=== PATIENT | male | born 2000 | race Caucasian/White ===

== ENCOUNTER 2018-04-25 20:54 | Emergency (ER) | payer OTHER ==
[~2018-04-25] VITALS: Ht 193 cm; Wt 142.9 kg
[~2018-04-25 20:54] MED LIST: AMOX50SU PO; ESOM20 PO
[2018-04-25] MEDS ORDERED: Percocet 5-3251 EACH PO (23:41)
== END 2018-04-26 00:17 | disposition home or self-care (01) ==
LOC: ER 20:54
DX: S16.1XXA Strain of muscle, fascia and tendon at neck level, initial encounter (principal); S00.81XA Abrasion of other part of head, initial encounter; V47.5XXA Car driver injured in collision with fixed or stationary object in traffic accident, initial encounter; Z79.899 Other long term (current) drug therapy; I10 Essential (primary) hypertension; E11.9 Type 2 diabetes mellitus without complications
CPT/HCPCS: 70450; 72125; 99284-25; A9270-GY

== ENCOUNTER 2018-08-03 01:37 | Emergency (ER) | payer OTHER ==
[~2018-08-03 01:37] MED LIST changes: +Percocet 5-3251 EACH PO
[2018-08-03] MEDS ORDERED: Voltaren100 GM TOP (04:00)
[2018-08-03] MEDS ORDERED: CYCL10 PO (04:00)
== END 2018-08-03 04:12 | disposition home or self-care (01) ==
LOC: ER 01:37
DX: M54.41 Lumbago with sciatica, right side (principal); I10 Essential (primary) hypertension; E11.9 Type 2 diabetes mellitus without complications
CPT/HCPCS: 96374; 99283-25; J1885

== ENCOUNTER 2020-09-11 09:20 | Emergency (ER) | payer OTHER ==
[~2020-09-11] VITALS: Ht 193 cm; Wt 145.2 kg
[~2020-09-11 09:20] MED LIST changes: +CYCL10 PO; +Voltaren100 GM TOP
[2020-09-11 09:43] LABS: BASOPHILS ABSOLUTE AUTO 0.03 K/mm3 (0.00-0.23); BASOPHILS PERCENT AUTO 0 % (0-2); EOSINOPHILS PERCENT AUTO 1 % (0-6); Hematocrit 48.5 % (37.0-53.0); Hemoglobin 16.9 g/dL (13.5-17.5); IMMATURE GRAN ABSOLUTE AUTO 0.06 K/mm3 (0.00-0.10); IMMATURE GRAN PERCENT AUTO 1 % (0-1); LYMPHOCYTES ABSOLUTE AUTO 1.86 K/mm3 (0.84-5.20); LYMPHOCYTES PERCENT AUTO 23 % (21-46); MONOCYTES ABSOLUTE AUTO 0.72 K/mm3 (0.16-1.47); MONOCYTES PERCENT AUTO 9 % (4-13); Mean Corpuscular HGB 30.1 pg (26.0-34.0); Mean Corpuscular HGB Conc 34.8 g/dL (31.5-36.5); Mean Corpuscular Volume 86 fL (80-100); Mean Platelet Volume 10.9 fL (9.1-12.4); NEUTROPHILS ABSOLUTE AUTO 5.46 K/mm3 (1.96-9.15); NEUTROPHILS PERCENT AUTO 66 % (41-73); Platelet Count 222 K/mm3 (150-400); RDW Coefficient Variation 13.1 % (11.7-14.2); RDW Standard Deviation 40.3 fL (35.1-46.3); Red Blood Cell Count 5.62 M/mm3 (4.30-5.90); White Blood Cell Count 8.23 K/mm3 (4.00-11.30)
[2020-09-11 10:15] LABS: Alanine Aminotransfer (ALT/SGP 60 U/L (12-78); Albumin, Blood 3.6 g/dL (3.4-5.0); Albumin/Globulin Ratio 0.8 (0.8-1.8); Alk Phos 82 U/L (50-136); Anion Gap 9 mmol/L (6-16); Aspartate Aminotrans (AST/SGOT 33 U/L (12-37); Bilirubin, Total 0.4 mg/dL (0.1-1.0); Blood Urea Nitrogen 13 mg/dL (8-24); Bun/Creatinine Ratio 25.3 (12.0-20.0); CO2, Blood 23 mmol/L (21-32); Calcium, Blood 9.1 mg/dL (8.5-10.1); Chloride, Blood 103 mmol/L (98-108); Creatinine, Blood 0.51 mg/dL (0.60-1.20); Globulin, Blood 4.6 g/dL (2.2-4.0); Glomerular Filtration Rate >60 (60-); Glucose, Blood 312 mg/dL (70-99); Potassium, Blood 4.3 mmol/L (3.5-5.5); Sodium, Blood 135 mmol/L (136-145); Total Protein, Blood 8.2 g/dL (6.4-8.2); Troponin I <0.015 ng/mL (0.000-0.040)
== END 2020-09-11 12:43 | disposition home or self-care (01) ==
LOC: ER 09:20
PROVIDERS: Emergency Medicine
DX: R07.89 Other chest pain (principal); E11.9 Type 2 diabetes mellitus without complications; I10 Essential (primary) hypertension
CPT/HCPCS: 36415; 71045; 80053; 83690; 84484; 85025; 85379; 93005; 93010; 99285-25

== ENCOUNTER → 2021-12-24 | Outpatient (CLI) | payer OTHER ==
[2021-12-24 16:56] LABS: BASOPHILS ABSOLUTE AUTO 0.02 K/mm3 (0.00-0.23); BASOPHILS PERCENT AUTO 1 % (0-2); EOSINOPHILS ABSOLUTE AUTO 0.03 K/mm3 (0.00-0.68); EOSINOPHILS PERCENT AUTO 1 % (0-6); Hemoglobin 17.2 g/dL (13.5-17.5); IMMATURE GRAN ABSOLUTE AUTO 0.03 K/mm3 (0.00-0.10); IMMATURE GRAN PERCENT AUTO 1 % (0-1); LYMPHOCYTES ABSOLUTE AUTO 0.54 K/mm3 (0.84-5.20); LYMPHOCYTES PERCENT AUTO 13 % (21-46); MONOCYTES ABSOLUTE AUTO 0.69 K/mm3 (0.16-1.47); MONOCYTES PERCENT AUTO 17 % (4-13); Mean Corpuscular HGB 29.7 pg (26.0-34.0); Mean Corpuscular HGB Conc 34.4 g/dL (31.5-36.5); Mean Corpuscular Volume 86 fL (80-100); Mean Platelet Volume 10.8 fL (9.1-12.4); NEUTROPHILS ABSOLUTE AUTO 2.81 K/mm3 (1.96-9.15); NEUTROPHILS PERCENT AUTO 68 % (41-73); Platelet Count 198 K/mm3 (150-400); RDW Coefficient Variation 13.2 % (11.7-14.2); RDW Standard Deviation 41.7 fL (35.1-46.3); Red Blood Cell Count 5.79 M/mm3 (4.30-5.90); White Blood Cell Count 4.12 K/mm3 (4.00-11.30)
[2021-12-24 17:22] LABS: Albumin, Blood 3.7 g/dL (3.4-5.0); Albumin/Globulin Ratio 0.8 (0.8-1.8); Bilirubin, Total 0.4 mg/dL (0.1-1.0); Bun/Creatinine Ratio 17.3 (12.0-20.0); Calcium, Blood 8.8 mg/dL (8.5-10.1); Creatinine, Blood 0.75 mg/dL (0.60-1.20); Globulin, Blood 4.5 g/dL (2.2-4.0); Potassium, Blood 3.9 mmol/L (3.5-5.5); Thyroid Stimulating Hormone 1.094 uIU/mL (0.360-4.800); Total Protein, Blood 8.2 g/dL (6.4-8.2)
[2021-12-27 00:07] LABS: HBSAG SCREEN Negative (Negative); HCV AB <0.1 (0.0-0.9); HEP A AB, IGM Negative (Negative); HEP B CORE AB, TOT Negative (Negative)
== END | disposition home or self-care (01) ==
LOC: LAB SHORT 16:52 → LAB 16:52
PROVIDERS: Physician Assistant
DX: E10.9 Type 1 diabetes mellitus without complications (principal); I10 Essential (primary) hypertension; R07.9 Chest pain, unspecified; R53.83 Other fatigue; R74.01 Elevation of levels of liver transaminase levels
CPT/HCPCS: 80053; 83036; 84443; 84484; 85025

== ENCOUNTER 2022-06-25 08:41 | Emergency (ER) | payer OTHER ==
[~2022-06-25] VITALS: Ht 193 cm; Wt 135.2 kg
[2022-06-25 09:00] VITALS: BP 187/105
[2022-06-25] MEDS ORDERED: Robaxin750 MG PO (11:10)
[2022-06-25] MEDS ORDERED: GABA300 PO (11:10)
== END 2022-06-25 11:17 | disposition home or self-care (01) ==
LOC: ER 08:41
DX: M54.41 Lumbago with sciatica, right side (principal); I10 Essential (primary) hypertension; E11.9 Type 2 diabetes mellitus without complications
CPT/HCPCS: A9270; J1885

== ENCOUNTER 2022-06-28 05:41 | Emergency (ER) | payer OTHER ==
[~2022-06-28] VITALS: Ht 185.4 cm; Wt 108.9 kg
[~2022-06-28 05:41] MED LIST changes: +GABA300 PO; +Robaxin750 MG PO
[2022-06-28 08:00] LABS: BASOPHILS ABSOLUTE AUTO 0.04 K/mm3 (0.00-0.23); BASOPHILS PERCENT AUTO 1 % (0-2); EOSINOPHILS PERCENT AUTO 1 % (0-6); Hematocrit 45.5 % (37.0-53.0); Hemoglobin 15.9 g/dL (13.5-17.5); IMMATURE GRAN ABSOLUTE AUTO 0.03 K/mm3 (0.00-0.10); IMMATURE GRAN PERCENT AUTO 0 % (0-1); LYMPHOCYTES ABSOLUTE AUTO 1.54 K/mm3 (0.84-5.20); LYMPHOCYTES PERCENT AUTO 20 % (21-46); MONOCYTES ABSOLUTE AUTO 0.68 K/mm3 (0.16-1.47); MONOCYTES PERCENT AUTO 9 % (4-13); Mean Corpuscular HGB Conc 34.9 g/dL (31.5-36.5); Mean Corpuscular Volume 86 fL (80-100); Mean Platelet Volume 11.2 fL (9.1-12.4); NEUTROPHILS ABSOLUTE AUTO 5.49 K/mm3 (1.96-9.15); NEUTROPHILS PERCENT AUTO 70 % (41-73); Platelet Count 185 K/mm3 (150-400); RDW Coefficient Variation 12.4 % (11.7-14.2); RDW Standard Deviation 38.5 fL (35.1-46.3); White Blood Cell Count 7.88 K/mm3 (4.00-11.30)
[2022-06-28 08:24] LABS: Albumin, Blood 3.3 g/dL (3.4-5.0); Albumin/Globulin Ratio 0.9 (0.8-1.8); Bilirubin, Total 0.4 mg/dL (0.1-1.0); Bun/Creatinine Ratio 26.8 (12.0-20.0); Calcium, Blood 8.8 mg/dL (8.5-10.1); Creatinine, Blood 0.52 mg/dL (0.60-1.20); Globulin, Blood 3.8 g/dL (2.2-4.0); Potassium, Blood 3.9 mmol/L (3.5-5.5); Total Protein, Blood 7.1 g/dL (6.4-8.2)
[2022-06-28 17:30] VITALS: BP 165/87
== END 2022-06-28 18:57 | disposition short-term general hospital (02) ==
LOC: ER 05:41
PROVIDERS: Emergency Medicine
DX: M48.061 Spinal stenosis, lumbar region without neurogenic claudication (principal); M54.16 Radiculopathy, lumbar region; E11.9 Type 2 diabetes mellitus without complications; I10 Essential (primary) hypertension
CPT/HCPCS: 72131; 80053; 82947; 85025; 96361; 96374; 96375; 96376; 99285-25; A9270; J1170; J1815; J1885; J2405; J7030

== ENCOUNTER 2023-09-13 17:55 | Emergency (ER) | payer OTHER ==
[~2023-09-13] VITALS: Ht 193 cm; Wt 140.6 kg
[2023-09-13 17:58] VITALS: BP 192/113
[2023-09-13] MEDS ORDERED: PredniSONE 20 MG Tab PO ONE (18:30)
[2023-09-13] MEDS ORDERED: PRED20 PO (18:31)
== END 2023-09-13 18:54 | disposition home or self-care (01) ==
LOC: ER 17:55
DX: B86 Scabies (principal); I10 Essential (primary) hypertension; E11.9 Type 2 diabetes mellitus without complications; G47.30 Sleep apnea, unspecified
CPT/HCPCS: A9270; J7512

== ENCOUNTER 2024-02-13 14:25 | Emergency (ER) | payer OTHER ==
[~2024-02-13] VITALS: Ht 193 cm; Wt 121.6 kg
[~2024-02-13 14:25] MED LIST changes: +PRED20 PO
[2024-02-13 14:42] VITALS: BP 219/129
[2024-02-13] MEDS ORDERED: Ketorolac Tromethamine 30mg Vial IM ONE (16:25)
[2024-02-13] MEDS ORDERED: OxyCODONE 7.5 mg/Acetam 325 mg TABLET PO ONE (16:25)
[2024-02-13] MEDS ORDERED: IBUP600 PO (17:06)
== END 2024-02-13 17:12 | disposition home or self-care (01) ==
LOC: ER 14:25
DX: M54.50 Low back pain, unspecified (principal); G89.29 Other chronic pain; I10 Essential (primary) hypertension; E11.9 Type 2 diabetes mellitus without complications; Z79.899 Other long term (current) drug therapy
CPT/HCPCS: 82947; 96372; 99283-25; A9270; J1885

== ENCOUNTER 2024-05-14 08:55 | Emergency (ER) | payer OTHER ==
[~2024-05-14] VITALS: Ht 172.7 cm; Wt 127.0 kg
[~2024-05-14 08:55] MED LIST changes: +IBUP600 PO
[2024-05-14] MEDS ORDERED: Ketorolac Tromethamine 30mg Vial IM ONE (09:30)
[2024-05-14] MEDS ORDERED: Gabapentin 300 MG Cap PO ONE (09:30)
[2024-05-14] MEDS ORDERED: Methyl Salicylate/Menth/Camph 57 GM TUBE TOP ONE (09:30)
[2024-05-14] MEDS ORDERED: Morphine Sulfate IR 15 MG Tab PO ONE (09:30)
[2024-05-14] MEDS ORDERED: Cyclobenzaprine HCl 10 MG Tab PO ONE (09:30)
[2024-05-14] MEDS ORDERED: Morphine Sulfat15 MG PO (10:43)
== END 2024-05-14 10:51 | disposition home or self-care (01) ==
LOC: ER 08:55
DX: M62.830 Muscle spasm of back (principal); I10 Essential (primary) hypertension; E11.9 Type 2 diabetes mellitus without complications; G47.30 Sleep apnea, unspecified; Z79.52 Long term (current) use of systemic steroids; Z87.39 Personal history of other diseases of the musculoskeletal system and connective tissue
CPT/HCPCS: 96372; 99283-25; A9270; J1885

== ENCOUNTER → 2024-06-17 | Outpatient (CLI) | payer OTHER ==
[~2024-06-17] MED LIST changes: +Morphine Sulfat15 MG PO
[2024-06-17 17:24] LABS: BASOPHILS ABSOLUTE AUTO 0.02 K/mm3 (0.00-0.23); BASOPHILS PERCENT AUTO 1 % (0-2); EOSINOPHILS ABSOLUTE AUTO 0.03 K/mm3 (0.00-0.68); EOSINOPHILS PERCENT AUTO 1 % (0-6); Hematocrit 51.7 % (37.0-53.0); Hemoglobin 17.3 g/dL (13.5-17.5); IMMATURE GRAN ABSOLUTE AUTO 0.03 K/mm3 (0.00-0.10); IMMATURE GRAN PERCENT AUTO 1 % (0-1); LYMPHOCYTES ABSOLUTE AUTO 0.88 K/mm3 (0.84-5.20); LYMPHOCYTES PERCENT AUTO 22 % (21-46); MONOCYTES ABSOLUTE AUTO 0.82 K/mm3 (0.16-1.47); MONOCYTES PERCENT AUTO 21 % (4-13); Mean Corpuscular HGB 29.3 pg (26.0-34.0); Mean Corpuscular HGB Conc 33.5 g/dL (31.5-36.5); Mean Corpuscular Volume 88 fL (80-100); Mean Platelet Volume 11.2 fL (9.1-12.4); NEUTROPHILS PERCENT AUTO 55 % (41-73); Platelet Count 170 K/mm3 (150-400); RDW Standard Deviation 41.8 fL (35.1-46.3); White Blood Cell Count 3.98 K/mm3 (4.00-11.30)
[2024-06-17 17:33] LABS: Albumin, Blood 3.8 g/dL (3.4-5.0); Albumin/Globulin Ratio 0.8 (0.8-1.8); Bilirubin, Total 0.5 mg/dL (0.1-1.0); Bun/Creatinine Ratio 15.7 (12.0-20.0); Calcium, Blood 9.4 mg/dL (8.5-10.1); Creatinine, Blood 0.83 mg/dL (0.60-1.20); Globulin, Blood 4.8 g/dL (2.2-4.0); Potassium, Blood 4.2 mmol/L (3.5-5.5); Total Protein, Blood 8.6 g/dL (6.4-8.2)
== END ==
LOC: LAB 17:18 → LAB SHORT 17:18
PROVIDERS: Emergency Medicine
DX: E11.9 Type 2 diabetes mellitus without complications (principal); R06.02 Shortness of breath
CPT/HCPCS: 80053; 83036; 83880; 84484; 85025

== ENCOUNTER → 2024-09-30 | Outpatient (CLI) | payer OTHER ==
[2024-09-30 15:01] LABS: BASOPHILS ABSOLUTE AUTO 0.06 K/mm3 (0.00-0.23); BASOPHILS PERCENT AUTO 1 % (0-2); EOSINOPHILS ABSOLUTE AUTO 0.02 K/mm3 (0.00-0.68); EOSINOPHILS PERCENT AUTO 0 % (0-6); Hematocrit 46.6 % (37.0-53.0); Hemoglobin 16.2 g/dL (13.5-17.5); IMMATURE GRAN ABSOLUTE AUTO 0.07 K/mm3 (0.00-0.10); IMMATURE GRAN PERCENT AUTO 1 % (0-1); LYMPHOCYTES ABSOLUTE AUTO 0.38 K/mm3 (0.84-5.20); LYMPHOCYTES PERCENT AUTO 4 % (21-46); MONOCYTES ABSOLUTE AUTO 1.69 K/mm3 (0.16-1.47); MONOCYTES PERCENT AUTO 16 % (4-13); Mean Corpuscular HGB Conc 34.8 g/dL (31.5-36.5); Mean Corpuscular Volume 86 fL (80-100); NEUTROPHILS ABSOLUTE AUTO 8.20 K/mm3 (1.96-9.15); NEUTROPHILS PERCENT AUTO 79 % (41-73); NRBC ABSOLUTE 0.00 K/mm3 (0.00-0.02); NRBC Auto 0.0 /100 WBC (0.0-0.2); Platelet Count 246 K/mm3 (150-400); RDW Coefficient Variation 13.2 % (11.7-14.2); RDW Standard Deviation 40.7 fL (35.1-46.3)
[2024-09-30 15:18] LABS: Alanine Aminotransfer (ALT/SGP 36.0 U/L (12-78); Albumin, Blood 3.9 g/dL (3.4-5.0); Albumin/Globulin Ratio 0.9 (0.8-1.8); Anion Gap 17.0 mmol/L (3-11); Aspartate Aminotrans (AST/SGOT 16.0 U/L (12-37); Bilirubin, Total 0.5 mg/dL (0.1-1.0); Blood Urea Nitrogen 11.0 mg/dL (8-24); CO2, Blood 26.0 mmol/L (21-32); Calcium, Blood 9.3 mg/dL (8.5-10.1); Chloride, Blood 98.0 mmol/L (98-108); Creatinine, Blood 0.85 mg/dL (0.60-1.20); Globulin, Blood 4.5 g/dL (2.2-4.0); Glucose, Blood 311.0 mg/dL (70-99); Potassium, Blood 4.4 mmol/L (3.5-5.5); Sodium, Blood 137.0 mmol/L (136-145); Total Protein, Blood 8.4 g/dL (6.4-8.2)
[2024-09-30 15:25] LABS: SEG NEUTROPHILS PERCENT MAN 68 % (41-73)
[2024-09-30 15:26] LABS: BAND PERCENT MAN 5 % (0-8); EOSINOPHILS ABSOLUTE MAN 0.20 K/mm3 (0.00-0.68); EOSINOPHILS PERCENT MAN 2 % (0-6); LYMPHOCYTES ABSOLUTE MAN 0.41 K/mm3 (0.84-5.20); LYMPHOCYTES PERCENT MAN 4 % (21-46); MONOCYTES ABSOLUTE MAN 2.08 K/mm3 (0.16-1.47); MONOCYTES PERCENT MAN 20 % (4-13); MYELOCYTE ABSOLUTE MAN 0.10 K/mm3 (0.00-0.00); MYELOCYTE PERCENT MAN 1 % (0-0); NEUTROPHILS ABSOLUTE MAN 7.60 K/mm3 (1.96-9.15)
== END ==
LOC: LAB 14:57 → LAB SHORT 14:57
PROVIDERS: Physician Assistant
DX: R73.9 Hyperglycemia, unspecified (principal)
CPT/HCPCS: 80053; 85025

== ENCOUNTER 2024-12-22 23:54 | Emergency (ER) | payer OTHER ==
[~2024-12-22] VITALS: Ht 193 cm; Wt 132.4 kg
[2024-12-23 00:47] LABS: BASOPHILS ABSOLUTE AUTO 0.04 K/mm3 (0.00-0.23); BASOPHILS PERCENT AUTO 0 % (0-2); EOSINOPHILS ABSOLUTE AUTO 0.03 K/mm3 (0.00-0.68); EOSINOPHILS PERCENT AUTO 0 % (0-6); Hematocrit 46.9 % (37.0-53.0); Hemoglobin 16.1 g/dL (13.5-17.5); IMMATURE GRAN ABSOLUTE AUTO 0.07 K/mm3 (0.00-0.10); IMMATURE GRAN PERCENT AUTO 0 % (0-1); LYMPHOCYTES ABSOLUTE AUTO 0.90 K/mm3 (0.84-5.20); LYMPHOCYTES PERCENT AUTO 6 % (21-46); MONOCYTES ABSOLUTE AUTO 1.58 K/mm3 (0.16-1.47); MONOCYTES PERCENT AUTO 10 % (4-13); Mean Corpuscular HGB Conc 34.3 g/dL (31.5-36.5); Mean Corpuscular Volume 86 fL (80-100); NEUTROPHILS ABSOLUTE AUTO 13.24 K/mm3 (1.96-9.15); NEUTROPHILS PERCENT AUTO 83 % (41-73); NRBC ABSOLUTE 0.00 K/mm3 (0.00-0.02); NRBC Auto 0.0 /100 WBC (0.0-0.2); Platelet Count 221 K/mm3 (150-400); RDW Coefficient Variation 12.5 % (11.7-14.2); RDW Standard Deviation 39.2 fL (35.1-46.3)
[2024-12-23 01:08] LABS: Prothrombin Time Results 11.4 Sec (9.7-11.5)
[2024-12-23 01:13] LABS: Alanine Aminotransfer (ALT/SGP 63.0 U/L (12-78); Albumin, Blood 3.8 g/dL (3.4-5.0); Albumin/Globulin Ratio 1.0 (0.8-1.8); Anion Gap 13.0 mmol/L (3-11); Aspartate Aminotrans (AST/SGOT 49.0 U/L (12-37); Bilirubin, Total 0.5 mg/dL (0.1-1.0); Blood Urea Nitrogen 13.0 mg/dL (8-24); CO2, Blood 25.0 mmol/L (21-32); Calcium, Blood 8.8 mg/dL (8.5-10.1); Chloride, Blood 100.0 mmol/L (98-108); Creatinine, Blood 0.7 mg/dL (0.60-1.20); Globulin, Blood 3.7 g/dL (2.2-4.0); Glucose, Blood 382.0 mg/dL (70-99); Potassium, Blood 4.1 mmol/L (3.5-5.5); Sodium, Blood 134.0 mmol/L (136-145); Total Protein, Blood 7.5 g/dL (6.4-8.2)
[2024-12-23] MEDS ORDERED: Ketorolac Tromethamine 15mg Vial IV ONE (02:10)
[2024-12-23] MEDS ORDERED: Robaxin750 MG PO (02:23)
[2024-12-23 02:30] VITALS: BP 161/112
== END 2024-12-23 02:30 | disposition home or self-care (01) ==
LOC: ER 23:54
PROVIDERS: Student in an Organized Health Care Education/Training Program
DX: S00.83XA Contusion of other part of head, initial encounter (principal); M54.50 Low back pain, unspecified; M25.512 Pain in left shoulder; I10 Essential (primary) hypertension; E11.9 Type 2 diabetes mellitus without complications; V89.2XXA Person injured in unspecified motor-vehicle accident, traffic, initial encounter
CPT/HCPCS: 70450; 71260; 72125; 74177; 80053; 85025; 85610; 85730; 86850; 86900; 86901; 96374-59; 99284; A9270; J1885; Q9967

== ENCOUNTER 2025-01-29 08:34 | Inpatient (IN) | payer OTHER ==
[2025-01-29] VITALS (17 sets, daily range): BP systolic 157–192; BP diastolic 84–115
[~2025-01-29] VITALS: Ht 193 cm; Wt 127.9 kg
[2025-01-29 09:01] LABS: BASOPHILS ABSOLUTE AUTO 0.04 K/mm3 (0.00-0.23); BASOPHILS PERCENT AUTO 0 % (0-2); EOSINOPHILS ABSOLUTE AUTO 0.04 K/mm3 (0.00-0.68); EOSINOPHILS PERCENT AUTO 0 % (0-6); Hematocrit 48.8 % (37.0-53.0); Hemoglobin 16.6 g/dL (13.5-17.5); IMMATURE GRAN ABSOLUTE AUTO 0.07 K/mm3 (0.00-0.10); IMMATURE GRAN PERCENT AUTO 0 % (0-1); LYMPHOCYTES ABSOLUTE AUTO 1.21 K/mm3 (0.84-5.20); LYMPHOCYTES PERCENT AUTO 7 % (21-46); MONOCYTES ABSOLUTE AUTO 1.60 K/mm3 (0.16-1.47); MONOCYTES PERCENT AUTO 9 % (4-13); Mean Corpuscular HGB Conc 34.0 g/dL (31.5-36.5); Mean Corpuscular Volume 86 fL (80-100); NEUTROPHILS ABSOLUTE AUTO 15.43 K/mm3 (1.96-9.15); NEUTROPHILS PERCENT AUTO 84 % (41-73); NRBC ABSOLUTE 0.00 K/mm3 (0.00-0.02); NRBC Auto 0.0 /100 WBC (0.0-0.2); Platelet Count 268 K/mm3 (150-400); RDW Coefficient Variation 12.2 % (11.7-14.2); RDW Standard Deviation 38.6 fL (35.1-46.3)
[2025-01-29 09:28] LABS: Alanine Aminotransfer (ALT/SGP 21.0 U/L (12-78); Albumin, Blood 3.8 g/dL (3.4-5.0); Albumin/Globulin Ratio 0.8 (0.8-1.8); Anion Gap 16.0 mmol/L (3-11); Aspartate Aminotrans (AST/SGOT 9.0 U/L (12-37); Bilirubin, Total 0.7 mg/dL (0.1-1.0); Blood Urea Nitrogen 9.0 mg/dL (8-24); CO2, Blood 19.0 mmol/L (21-32); Calcium, Blood 9.1 mg/dL (8.5-10.1); Chloride, Blood 101.0 mmol/L (98-108); Creatinine, Blood 0.47 mg/dL (0.60-1.20); Globulin, Blood 4.5 g/dL (2.2-4.0); Glucose, Blood 229.0 mg/dL (70-99); Potassium, Blood 4.2 mmol/L (3.5-5.5); Sodium, Blood 132.0 mmol/L (136-145); Total Protein, Blood 8.3 g/dL (6.4-8.2)
[2025-01-29] MEDS ORDERED: Ketorolac Tromethamine 30mg Vial IV ONE (10:15)
[2025-01-29] MEDS ORDERED: Ondansetron HCl 2 MG / ML 2ML Vial IV ONE (10:15)
[2025-01-29] MEDS ORDERED: Morphine Sulfate 4 MG/1 ML Injection IV ONE (10:15)
[2025-01-29] MEDS ORDERED: NS 1,000 ML IV SCH (10:30)
[2025-01-29] MEDS ORDERED: NEURONTIN300 MG PO (10:33)
[2025-01-29] MEDS ORDERED: INSULIN GL100 UNIT/2 SQ (10:34)
[2025-01-29] MEDS ORDERED: BACLOFEN10 M4 PO (10:34)
[2025-01-29] MEDS ORDERED: Bupivacaine 0.5% HCl 5 MG/ML 30MLVIAL ONE (11:37)
[2025-01-29] MEDS ORDERED: FentaNYL Citrate 50 MCG/ML 2 ML Injection ONE ×2 (12:35→13:15)
[2025-01-29] MEDS ORDERED: Midazolam HCl 1MG / ML 2ML Vial ONE (12:35)
[2025-01-29] MEDS ORDERED: Rocuronium Bromide 10 MG/ML 5ML Injection IV ONE (12:37)
[2025-01-29] MEDS ORDERED: CeFAZolin Sodium 3,000 MG in NS 100 ML IV SCH (12:40)
[2025-01-29] MEDS ORDERED: FentaNYL Citrate 50 MCG/ML 2 ML Injection IV PRN (12:45)
[2025-01-29] MEDS ORDERED: Ondansetron HCl 2 MG / ML 2ML Vial IV PRN (12:45)
[2025-01-29] MEDS ORDERED: FLU VACC TS2025-26(6MOS UP)/PF 45 MCG/0.5 ML SYRINGE IM SCH (12:50)
[2025-01-29] MEDS ORDERED: HydrALAZINE HCl 20 MG / ML 1ML Vial IV PRN ×2 (12:50→13:45)
[2025-01-29] MEDS ORDERED: HYDROcodone 10-APAP 325 TAB PO PRN (12:50)
[2025-01-29] MEDS ORDERED: Ketorolac Tromethamine 30mg Vial IV PRN (12:55)
[2025-01-29] MEDS ORDERED: Dexamethasone Sod Phos 10 MG/ML 1ML VIAL ONE (13:02)
[2025-01-29] MEDS ORDERED: Sugammadex Sodium 200 MG/2ML SDV (100 MG/ML) ONE (13:02)
[2025-01-29] MEDS ORDERED: Ketorolac Tromethamine 30mg Vial ONE (13:02)
[2025-01-29] MEDS ORDERED: Ondansetron HCl 2 MG / ML 2ML Vial ONE (13:02)
[2025-01-29] MEDS ORDERED: Labetalol HCL 5 MG/ML 4ML Injection (Single Dose) ONE (13:53)
[2025-01-29] MEDS ORDERED: HYDROmorphone HCl/Pf 1MG SYR ONE ×2 (13:55→14:09)
--- NOTE | 2025-01-29 16:33 | NUR ---
SHIFT SUMMARY PT AOX4, COOPERATIVE, ABLE TO MAKE NEEDS KNOWN. PT IS SBA IN ROOM. TOLERATING MEDICATIONS. PT IS HYPTERTENSIVE, MD AWARE. LAP BARBY SITES LOOK WNL, WITH NO DRAINAGE OR EXTREME INFLAMMATION NOTED. PT GETTING UP TO USE BATHROOM APPROPRIATELY WITH SBA. PT HAS NOT RECEIVED ANY OUTPT DIABETIC EDUCATION. CONTINUE TO REINFORCE EDUCATION ABOUT TYPE 2 DM. PT ON ROOM AIR NOW. BED IN LOWEST POSITION, CALL LIGHT WITHIN REACH.
[2025-01-29] MEDS ORDERED: Insulin Human Lispro 100 Units/ML 3ML Syringe SC SCH (21:00)
[2025-01-30 04:01] VITALS: BP 142/82
[2025-01-30 04:47] LABS: BASOPHILS ABSOLUTE AUTO 0.04 K/mm3 (0.00-0.23); BASOPHILS PERCENT AUTO 0 % (0-2); Hematocrit 46.8 % (37.0-53.0); Hemoglobin 16.0 g/dL (13.5-17.5); Mean Corpuscular HGB Conc 34.2 g/dL (31.5-36.5); Mean Corpuscular Volume 87 fL (80-100); NRBC ABSOLUTE 0.00 K/mm3 (0.00-0.02); NRBC Auto 0.0 /100 WBC (0.0-0.2); Platelet Count 271 K/mm3 (150-400); RDW Coefficient Variation 12.5 % (11.7-14.2); RDW Standard Deviation 39.7 fL (35.1-46.3)
[2025-01-30 05:10] LABS: Alanine Aminotransfer (ALT/SGP 37.0 U/L (12-78); Albumin, Blood 3.4 g/dL (3.4-5.0); Albumin/Globulin Ratio 0.8 (0.8-1.8); Anion Gap 12.0 mmol/L (3-11); Aspartate Aminotrans (AST/SGOT 22.0 U/L (12-37); Bilirubin, Total 0.3 mg/dL (0.1-1.0); Blood Urea Nitrogen 12.0 mg/dL (8-24); CO2, Blood 22.0 mmol/L (21-32); Calcium, Blood 8.8 mg/dL (8.5-10.1); Chloride, Blood 102.0 mmol/L (98-108); Creatinine, Blood 0.59 mg/dL (0.60-1.20); Globulin, Blood 4.5 g/dL (2.2-4.0); Glucose, Blood 239.0 mg/dL (70-99); Potassium, Blood 3.9 mmol/L (3.5-5.5); Sodium, Blood 132.0 mmol/L (136-145); Total Protein, Blood 7.9 g/dL (6.4-8.2)
[2025-01-30 05:31] LABS: EOSINOPHILS ABSOLUTE AUTO 0.01 K/mm3 (0.00-0.68); EOSINOPHILS PERCENT AUTO 0 % (0-6); IMMATURE GRAN ABSOLUTE AUTO 0.08 K/mm3 (0.00-0.10); IMMATURE GRAN PERCENT AUTO 0 % (0-1); LYMPHOCYTES ABSOLUTE AUTO 1.32 K/mm3 (0.84-5.20); LYMPHOCYTES PERCENT AUTO 6 % (21-46); MONOCYTES ABSOLUTE AUTO 2.78 K/mm3 (0.16-1.47); MONOCYTES PERCENT AUTO 14 % (4-13); NEUTROPHILS ABSOLUTE AUTO 16.25 K/mm3 (1.96-9.15); NEUTROPHILS PERCENT AUTO 79 % (41-73)
--- NOTE | 2025-01-30 06:11 | NUR ---
SHIFT SUMMARY POD 1 LAP BARBY. 4 LAP SITES C/D/I CANE PILER. PAIN MANAGED WELL PER EMAR. PT TOLERATING PO INTAKE. PT C/0 NAUSEA THIS SHIFT, MEDICATED PER EMAR WITH PT REPORTING RELIEF OF SYMPTOMS. PT VOIDING URINE. PT REPORTS PASSING FLATUS. PT INDEPENDENT IN ROOM. PT HYPERTENSIVE THIS SHIFT, MEDICATED PER EMAR WITH BP 142/82 @ 0401. THIS NURSE REINFORCED EDUCATION REGARDING DM TYPE 2 THIS SHIFT. PT RESTING IN BED, RESPIRATIONS EVEN AND UNLABORED. CALL LIGHT WITHIN REACH.
[2025-01-30 07:36] VITALS: BP 164/86
[2025-01-30] MEDS ORDERED: CefTRIAXone Sodium 1,000 MG in NS 100 ML IV SCH (09:00)
[2025-01-30 16:31] VITALS: BP 140/86
--- NOTE | 2025-01-30 17:02 | NUR ---
SHIFT SUMMARY A/OX4, IND IN ROOM. CALLS APPROPRIATELY. POD 1 LAP BARBY, 4 LAP SITES TO ABD C/D/I. C/O ABD PAIN, MEDICATED PER EMAR. CBG AC/HS. NO ACUTE CHANGES AT THIS TIME.
[2025-01-30 20:10] VITALS: BP 151/83
[2025-01-30 23:32] VITALS: BP 144/85
[2025-01-31] VITALS (15 sets, daily range): BP systolic 120–165; BP diastolic 56–90
[2025-01-31 06:00] LABS: BASOPHILS ABSOLUTE AUTO 0.06 K/mm3 (0.00-0.23); BASOPHILS PERCENT AUTO 0 % (0-2); EOSINOPHILS ABSOLUTE AUTO 0.10 K/mm3 (0.00-0.68); EOSINOPHILS PERCENT AUTO 1 % (0-6); Hematocrit 44.3 % (37.0-53.0); Hemoglobin 14.6 g/dL (13.5-17.5); IMMATURE GRAN ABSOLUTE AUTO 0.16 K/mm3 (0.00-0.10); IMMATURE GRAN PERCENT AUTO 1 % (0-1); LYMPHOCYTES ABSOLUTE AUTO 1.06 K/mm3 (0.84-5.20); LYMPHOCYTES PERCENT AUTO 5 % (21-46); MONOCYTES ABSOLUTE AUTO 2.42 K/mm3 (0.16-1.47); MONOCYTES PERCENT AUTO 11 % (4-13); Mean Corpuscular HGB Conc 33.0 g/dL (31.5-36.5); Mean Corpuscular Volume 89 fL (80-100); NEUTROPHILS ABSOLUTE AUTO 18.26 K/mm3 (1.96-9.15); NEUTROPHILS PERCENT AUTO 83 % (41-73); NRBC ABSOLUTE 0.00 K/mm3 (0.00-0.02); NRBC Auto 0.0 /100 WBC (0.0-0.2); Platelet Count 266 K/mm3 (150-400); RDW Coefficient Variation 12.8 % (11.7-14.2); RDW Standard Deviation 42.1 fL (35.1-46.3)
--- NOTE | 2025-01-31 06:14 | NUR ---
SHIFT SUMMARY PT TRANSFERRED FROM MEDICAL FLOOR FLOOR TO ROOM 202 AT THE BEGINNING OF THE SHIFT. PT S/P LAP BARBY. PT STILL HAVING QUITE A A BIT OF PAIN REQUIRING PRNS. PT ALSO REPORTING R SHOULDER PAIN. PT ENCOURAGED TO AMBULATE TO HELP WITH GAS PAIN, BUT DOES NOT HAVE MUCH MOTIVATION TO WALK. PAIN MANAGED PER EMAR. SURGICAL SITE WNL, DRESSING INTACT. BED IN LOWEST POSITION, CALL LIGHT WITHIN REACH.
[2025-01-31 06:23] LABS: Alanine Aminotransfer (ALT/SGP 68.0 U/L (12-78); Albumin, Blood 3.0 g/dL (3.4-5.0); Albumin/Globulin Ratio 0.7 (0.8-1.8); Anion Gap 12.0 mmol/L (3-11); Aspartate Aminotrans (AST/SGOT 28.0 U/L (12-37); Bilirubin, Total 2.1 mg/dL (0.1-1.0); Blood Urea Nitrogen 18.0 mg/dL (8-24); CO2, Blood 25.0 mmol/L (21-32); Calcium, Blood 9.2 mg/dL (8.5-10.1); Chloride, Blood 97.0 mmol/L (98-108); Creatinine, Blood 0.76 mg/dL (0.60-1.20); Globulin, Blood 4.6 g/dL (2.2-4.0); Glucose, Blood 243.0 mg/dL (70-99); Potassium, Blood 4.2 mmol/L (3.5-5.5); Sodium, Blood 130.0 mmol/L (136-145); Total Protein, Blood 7.6 g/dL (6.4-8.2)
--- NOTE | 2025-01-31 06:42 | NUR ---
INCREASED WBC DR. GARDINER CALLED AND NOTIFIED THAT PT WBC CONTINUE TO RISE DESPITE BEING ON ROCEPHIN. WHITE COUNT DEREK FROM 20 TO 22 WITH AM LABS. NO NEW ORDERS GIVEN HE STATES "JUST WATCH FOR NOW".
--- NOTE | 2025-01-31 09:46 | NUR ---
UPDATE PATIENT ATE BREAKFAST THIS AM ABOUT 25%. AND [address] AGUILAR @ [phone] TO MAKE PATIENT NPO FOR POSSIBLE APPENDICITIS FOLLOWING CT SCAN THIS AM.
[2025-01-31] MEDS ORDERED: Rocuronium Bromide 10 MG/ML 5ML Injection IV ONE ×2 (14:32→15:40)
[2025-01-31] MEDS ORDERED: Midazolam HCl 1MG / ML 2ML Vial ONE (14:32)
[2025-01-31] MEDS ORDERED: FentaNYL Citrate 50 MCG/ML 2 ML Injection ONE ×2 (14:32→15:32)
--- NOTE | 2025-01-31 14:38 | NUR ---
PATIENT TO DAY SURGERY @0078
[2025-01-31] MEDS ORDERED: Bupivacaine 0.5% HCl 5 MG/ML 30MLVIAL ONE (14:47)
[2025-01-31] MEDS ORDERED: Dexamethasone Sod Phos 10 MG/ML 1ML VIAL ONE (15:08)
[2025-01-31] MEDS ORDERED: Ondansetron HCl 2 MG / ML 2ML Vial ONE ×2 (15:08→17:36)
[2025-01-31] MEDS ORDERED: Phenylephrine HCl 100 MCG/ML-NS 10MLSYR (1MG/10ML) ONE (15:11)
[2025-01-31] MEDS ORDERED: Sugammadex Sodium 200 MG/2ML SDV (100 MG/ML) ONE (16:29)
[2025-01-31] MEDS ORDERED: Ketorolac Tromethamine 30mg Vial ONE (16:29)
[2025-01-31] MEDS ORDERED: MetFORMIN HCl 500 mg PO SCH (17:00)
[2025-01-31] MEDS ORDERED: Piperacillin/Tazobactam Sod 4.5 GM in NS 100 ML IV SCH (18:00)
--- NOTE | 2025-01-31 18:26 | NUR ---
POST-OP PATIENT BACK TO ROOM @ 1830, REPORTS NAUSEA, AND PAIN. JAXON DRAIN WITH S/S LAWANDA. LAP SITES ARE C/D/I. WITH STERI STRIPS. PATIENT IS ABLE TO STAND TO VOID. IV ABX, AND FLUIDS RUNNING. VSS. ON 3L NC, DIM LUNG SOUNDS. ENCOURAGED DEEP BREATHING, COUGH, AND IS AT BEDSIDE. ONLY ABLE TO TOLERATE SIPS OF WATER AT TH IS TIME. CALL LIGHT IN REACH AND FAMILY AT BEDSIDE.
[2025-02-01] MEDS ORDERED: NS 250 ML IV PRN (00:30)
--- NOTE | 2025-02-01 05:48 | NUR ---
SHIFT SUMMARY POD 1 S/P LAP APPY AND POD 2 S/P LAP BARBY. ABD LAP SITES CDI WITH TISSUE ADHESIVE AND/OR STERI STRIPS. JAXON DRESSING SLIGHTY LEAKING AT INSERTION SITE, CHG DRESSING REINFORCED WITH EXUDRY AND MEDIPORE TAPE. JAXON HOLDING SUCTION, 20ML SS FLUID OUT THIS SHIFT. BRUISING NOTED ABOVE JAXON INSERTION. PT IS A/OX4 WITH VSS. ON 1.5L NC; USING I.S. AND AMBULATING IN HALLWAYS WITH MIN SBA. IVF/ABX INFUSING PER ORDERS. JENNIFER PO, DENIES N/V. MEDICATED WITH ANTIEMETIC X1 PER PT REQUEST R/T PAIN MEDICATION ADMINISTRATION. PAIN MANAGED PER EMAR. PT PLEASANT AND COOPERATIVE WITH CARE. IS CURRENTLY RESTING IN BED WITH RESP EVEN, EYES CLOSED, AND CALL LIGHT IN REACH. WILL GIVE REPORT TO ONCOMING RN.
[2025-02-01 06:26] VITALS: BP 132/85
[2025-02-01 06:33] LABS: BASOPHILS ABSOLUTE AUTO 0.03 K/mm3 (0.00-0.23); BASOPHILS PERCENT AUTO 0 % (0-2); EOSINOPHILS ABSOLUTE AUTO 0.12 K/mm3 (0.00-0.68); EOSINOPHILS PERCENT AUTO 1 % (0-6); Hematocrit 39.0 % (37.0-53.0); Hemoglobin 12.7 g/dL (13.5-17.5); IMMATURE GRAN ABSOLUTE AUTO 0.14 K/mm3 (0.00-0.10); IMMATURE GRAN PERCENT AUTO 1 % (0-1); LYMPHOCYTES ABSOLUTE AUTO 0.64 K/mm3 (0.84-5.20); LYMPHOCYTES PERCENT AUTO 3 % (21-46); MONOCYTES ABSOLUTE AUTO 2.25 K/mm3 (0.16-1.47); MONOCYTES PERCENT AUTO 12 % (4-13); Mean Corpuscular HGB Conc 32.6 g/dL (31.5-36.5); Mean Corpuscular Volume 91 fL (80-100); NEUTROPHILS ABSOLUTE AUTO 15.92 K/mm3 (1.96-9.15); NEUTROPHILS PERCENT AUTO 83 % (41-73); NRBC ABSOLUTE 0.00 K/mm3 (0.00-0.02); NRBC Auto 0.0 /100 WBC (0.0-0.2); Platelet Count 236 K/mm3 (150-400); RDW Coefficient Variation 12.8 % (11.7-14.2); RDW Standard Deviation 42.5 fL (35.1-46.3)
[2025-02-01 06:59] LABS: Anion Gap 10.0 mmol/L (3-11); Blood Urea Nitrogen 19.0 mg/dL (8-24); CO2, Blood 26.0 mmol/L (21-32); Calcium, Blood 8.6 mg/dL (8.5-10.1); Chloride, Blood 99.0 mmol/L (98-108); Creatinine, Blood 0.62 mg/dL (0.60-1.20); Glucose, Blood 242.0 mg/dL (70-99); Potassium, Blood 4.1 mmol/L (3.5-5.5); Sodium, Blood 131.0 mmol/L (136-145)
[2025-02-01 07:54] VITALS: BP 136/81
[2025-02-01] MEDS ORDERED: Polyethylene Glycol 3350 17 gm PO ONE (12:00)
[2025-02-01 16:22] VITALS: BP 129/76
--- NOTE | 2025-02-01 17:05 | NUR ---
SHIFT SUMMARY PATIENT IS AOX4, IND IN ROOM TO BATHROOM, TOLERATING CL DIET AND PO PAIN MEDICATION. MEDICATED PER EMAR. LAPS SITES ARE C/D/I WITH STERI STRIPS AND JAXON DRAIN IS INTACT BULB TO SX, WITH S/S OUTPUT. IV FLUIDS AND ABX T/O SHIFT. VSS. AND PATIENT IS REPORTINGPASSING FLATUS AND STOOL THIS AFTERNOON.
[2025-02-01 19:40] VITALS: BP 134/79
[2025-02-02 04:44] VITALS: BP 149/82
--- NOTE | 2025-02-02 04:47 | NUR ---
NOC SUMMARY- PT PAIN MANAGED WELL. DRESSING C/D/I. SCANT AMOUNT OF SS IN JAXON DRAIN. PT AMBULATORY. PT IS DEVELOPING A COUGH AND IS HAVING SOME DIFFICULTY GETTING STUFF UP. PT REQUIRED 2 LPM O2 VIA N/C DUE TO SOME SLIGHT SOB. NO OTHER ISSUES NOTED. PT VOIDING AND HAVING BM.
[2025-02-02 07:07] VITALS: BP 142/87
[2025-02-02] MEDS ORDERED: Polyethylene Glycol 3350 17 gm PO SCH (09:00)
[2025-02-02 10:53] LABS: BASOPHILS ABSOLUTE AUTO 0.05 K/mm3 (0.00-0.23); BASOPHILS PERCENT AUTO 0 % (0-2); EOSINOPHILS ABSOLUTE AUTO 0.03 K/mm3 (0.00-0.68); EOSINOPHILS PERCENT AUTO 0 % (0-6); Hematocrit 38.1 % (37.0-53.0); Hemoglobin 12.4 g/dL (13.5-17.5); IMMATURE GRAN ABSOLUTE AUTO 0.12 K/mm3 (0.00-0.10); IMMATURE GRAN PERCENT AUTO 1 % (0-1); LYMPHOCYTES ABSOLUTE AUTO 1.52 K/mm3 (0.84-5.20); LYMPHOCYTES PERCENT AUTO 9 % (21-46); MONOCYTES ABSOLUTE AUTO 2.30 K/mm3 (0.16-1.47); MONOCYTES PERCENT AUTO 14 % (4-13); Mean Corpuscular HGB Conc 32.5 g/dL (31.5-36.5); Mean Corpuscular Volume 91 fL (80-100); NEUTROPHILS ABSOLUTE AUTO 12.77 K/mm3 (1.96-9.15); NEUTROPHILS PERCENT AUTO 76 % (41-73); NRBC ABSOLUTE 0.00 K/mm3 (0.00-0.02); NRBC Auto 0.0 /100 WBC (0.0-0.2); Platelet Count 303 K/mm3 (150-400); RDW Coefficient Variation 12.8 % (11.7-14.2); RDW Standard Deviation 42.5 fL (35.1-46.3)
[2025-02-02 16:49] VITALS: BP 158/94
--- NOTE | 2025-02-02 17:16 | NUR ---
SHIFT SUMMARY POD 4 LAP BARBY & POD 2 LAP APPY. LAP SITES x7 - C/D/I. JAXON DRAIN IN PLACE w/MINIMAL SANGINEOUS DRAINAGE. ADVANCED TO FULL LIQUID DIET TODAY - TOLERATING WELL. PAIN CONTROLLED WELL PER EMAR. PASSING GAS & BM'S. IND IN ROOM. ON TELE - NO EVENTS. RESTING IN BED w/CALL LIGHT WITHIN REACH.
[2025-02-02 20:16] VITALS: BP 151/84
[2025-02-02] MEDS ORDERED: Magnesium Hydroxide Conc 10 ML UDC PO ONE (22:20)
--- NOTE | 2025-02-03 04:43 | NUR ---
NOC SUMMARY- PT PAIN MANAGED WELL. PT TOLERATING DIET. PT IS EAGER TO ADVANCE DIET. PT HAS BEEN RESTING COMFORTBLY. PT VOIDING. PT DRESSINGS C/D/I. JAXON PUTTING MINIMUM YELLOW FLUID. NO NEW ISSUES NOTED.
[2025-02-03 04:55] LABS: Hematocrit 38.0 % (37.0-53.0); Hemoglobin 12.2 g/dL (13.5-17.5); Mean Corpuscular HGB Conc 32.1 g/dL (31.5-36.5); Mean Corpuscular Volume 90 fL (80-100); NRBC ABSOLUTE 0.00 K/mm3 (0.00-0.02); NRBC Auto 0.0 /100 WBC (0.0-0.2); Platelet Count 285 K/mm3 (150-400); RDW Coefficient Variation 12.7 % (11.7-14.2); RDW Standard Deviation 42.2 fL (35.1-46.3)
[2025-02-03 05:14] LABS: Anion Gap 10.0 mmol/L (3-11); Blood Urea Nitrogen 13.0 mg/dL (8-24); CO2, Blood 28.0 mmol/L (21-32); Calcium, Blood 8.6 mg/dL (8.5-10.1); Chloride, Blood 100.0 mmol/L (98-108); Creatinine, Blood 0.59 mg/dL (0.60-1.20); Glucose, Blood 234.0 mg/dL (70-99); Potassium, Blood 4.1 mmol/L (3.5-5.5); Sodium, Blood 134.0 mmol/L (136-145)
[2025-02-03 05:21] LABS: BAND PERCENT MAN 3 % (0-8); BASOPHILS ABSOLUTE MAN 0.00 K/mm3 (0.00-0.23); BASOPHILS PERCENT MAN 0 % (0-2); EOSINOPHILS ABSOLUTE MAN 0.00 K/mm3 (0.00-0.68); EOSINOPHILS PERCENT MAN 0 % (0-6); LYMPHOCYTES % ATYPICAL MANUAL 2 % (0-0); LYMPHOCYTES ABSOLUTE MAN 1.61 K/mm3 (0.84-5.20); LYMPHOCYTES PERCENT MAN 9 % (21-46); METAMYELOCYTE ABSOLUTE MAN 0.14 K/mm3 (0.00-0.00); METAMYELOCYTE PERCENT MAN 1 % (0-0); MONOCYTES ABSOLUTE MAN 2.48 K/mm3 (0.16-1.47); MONOCYTES PERCENT MAN 17 % (4-13); NEUTROPHILS ABSOLUTE MAN 10.39 K/mm3 (1.96-9.15); SEG NEUTROPHILS PERCENT MAN 68 % (41-73)
[2025-02-03 05:40] VITALS: BP 150/85
[2025-02-03 07:12] VITALS: BP 186/90
--- NOTE | 2025-02-03 11:03 | NUR ---
NOTE: PATIENT UPSET THIS MORNING UPON ENTERING ROOM D/T PAIN AND FRUSTRATION. PATIENT VERBALIZED "THEY CAN'T DO ANYTHING FUCKING RIGHT AROUND HERE. IM NOT EATING THIS JIZZ MADE FOOD". THIS NURSE DE-ESCULATED THE SITUATION BY OFFERING OTHER FOOD OPTIONS THAT ALIGN WITH HIS DIET. PATIENT DENIED SUPPLEMENTS. MEDICATED FOR PAIN AND DISCOMFORT. VERBALIZED HIS FRUSTRATION WITH STAFF "BOTHERING HIM" AND "NOT BEING ABLE TO SLEEP". PATIENT HAS NO NEEDS AT THIS TIME. WILL CONTINUE TO MONITOR. MEDICATED PER EMAR, SEE FOR DETAILS.
--- NOTE | 2025-02-03 11:47 | NUR ---
NOTE: UPON DOING NPPR, PATIENT WAS UNRECEPTIVE OF 'S PRESENSE IN ROOM. EXPLAINED THE PLAN FOR TODAY WITH NO RESPONSE FROM THE PATIENT OTHER THAN A THUMBS UP. UPON EXITING THE ROOM PATIENT VERBALIZED "I WILL THROW A CUP OF WATER IN THAT HORRIBLE DOCTORS FACE AND GET KICKED OUT, I DO NOT CARE FOR HER". THIS NURSE UTILIZED THERAPUTIC LISTENING AND DE-ESCULATED THE SITUATION. PATIENT CONTINUED "I DO NOT HAVE PROBLEMS WITH ANY OF THE NURSING STAFF, JUST HER". DR. AGUILAR MADE AWARE OF THESE REMARKS. PLAN OF CARE ONGOING AT THIS TIME, CALL LIGHT WITHIN REACH. WILL CONTINUE TO MONITOR.
--- NOTE | 2025-02-03 12:08 | NUR ---
THIS INTERACTIVE DIGITAL MEDIA SPECIALIST WAS ROUNDING WHEN PATIENT REQUEST THAT "THE DR HE NOW, HE DOESNT WANT BACK." RN NOTIFIED BHARATH
--- NOTE | 2025-02-03 15:07 | NUR ---
AMA SUMMARY: PATIENT PROVIDED EDUCATION PRIOR TO DISCHARGING ABOUT POTENTIAL RISKS OF BLEEDING, INFECTION, AND . PATIENT VERBALIZED RISKS BACK TO THIS NURSE AND CONFIRMED HE UNDERSTOOD. IV REMOVED, JAXON WAS REMOVED BY DR. IVERSON. DRESSING PROVIDED TO PATIENT. BELONGINGS PACKED.
[2025-02-04] MEDS ORDERED: LOSA25 PO (16:23)
== END 2025-02-03 13:40 | disposition left against medical advice (07) | DRG 418 ==
LOC: ER 08:34 → MEDS 08:35 → SURS 08:35 → ER 12:07 → SURS 12:07 → MEDS 14:41 → SURS 01-30 19:09
PROVIDERS: Student in an Organized Health Care Education/Training Program; Surgery; ADMIT Internal Medicine
PROC: 3E03329 Introduction of Other Anti-infective into Peripheral Vein, Percutaneous Approach (ICD-10-PCS; 2025-01-29)
PROC: 0FT44ZZ Resection of Gallbladder, Percutaneous Endoscopic Approach (ICD-10-PCS; principal; 2025-01-29 13:15)
PROC: 0DTJ4ZZ Resection of Appendix, Percutaneous Endoscopic Approach (ICD-10-PCS; 2025-01-31)
DX: K80.10 Calculus of gallbladder with chronic cholecystitis without obstruction (principal); K35.201 Acute appendicitis with generalized peritonitis, with perforation, without abscess; I10 Essential (primary) hypertension; E11.9 Type 2 diabetes mellitus without complications; G47.30 Sleep apnea, unspecified; M54.50 Low back pain, unspecified; G89.29 Other chronic pain; G47.33 Obstructive sleep apnea (adult) (pediatric); Z53.29 Procedure and treatment not carried out because of patient's decision for other reasons; Z90.89 Acquired absence of other organs; Z90.49 Acquired absence of other specified parts of digestive tract; Z79.4 Long term (current) use of insulin; Z79.899 Other long term (current) drug therapy
CPT/HCPCS: 36415; 74176; 76705; 80048; 80053; 82947; 83036; 83690; 85025; 86140; 87040; 88304; 94760; 96361-59; 96365; 96372; 96374-59; 96375; 96375-59; 96376; 99284-25; 99285-25; A9270; G0378; J0690; J0696; J1100; J1171; J1885; J2250; J2270; J2371; J2405; J2543; J2704; J3010; J7030; J7050; J7120

== ENCOUNTER 2025-02-04 10:10 | Inpatient (IN) | payer OTHER ==
[~2025-02-04] VITALS: Ht 162.6 cm; Wt 120.7 kg
[2025-02-04] VITALS: BP 175/100
[~2025-02-04 10:10] MED LIST changes: +BACLOFEN10 M4 PO; +INSULIN GL100 UNIT/2 SQ; +NEURONTIN300 MG PO
[2025-02-04 10:36] LABS: BASOPHILS ABSOLUTE AUTO 0.10 K/mm3 (0.00-0.23); BASOPHILS PERCENT AUTO 1 % (0-2); EOSINOPHILS ABSOLUTE AUTO 0.07 K/mm3 (0.00-0.68); EOSINOPHILS PERCENT AUTO 0 % (0-6); Hematocrit 43.7 % (37.0-53.0); Hemoglobin 14.2 g/dL (13.5-17.5); IMMATURE GRAN ABSOLUTE AUTO 0.47 K/mm3 (0.00-0.10); IMMATURE GRAN PERCENT AUTO 3 % (0-1); LYMPHOCYTES ABSOLUTE AUTO 1.46 K/mm3 (0.84-5.20); LYMPHOCYTES PERCENT AUTO 9 % (21-46); MONOCYTES ABSOLUTE AUTO 1.76 K/mm3 (0.16-1.47); MONOCYTES PERCENT AUTO 10 % (4-13); Mean Corpuscular HGB Conc 32.5 g/dL (31.5-36.5); Mean Corpuscular Volume 89 fL (80-100); NEUTROPHILS ABSOLUTE AUTO 13.41 K/mm3 (1.96-9.15); NEUTROPHILS PERCENT AUTO 78 % (41-73); NRBC ABSOLUTE 0.00 K/mm3 (0.00-0.02); NRBC Auto 0.0 /100 WBC (0.0-0.2); Platelet Count 376 K/mm3 (150-400); RDW Coefficient Variation 12.5 % (11.7-14.2); RDW Standard Deviation 41.4 fL (35.1-46.3)
[2025-02-04 10:52] LABS: Alanine Aminotransfer (ALT/SGP 31.0 U/L (12-78); Albumin, Blood 1.9 g/dL (3.4-5.0); Albumin/Globulin Ratio 0.3 (0.8-1.8); Anion Gap 16.0 mmol/L (3-11); Aspartate Aminotrans (AST/SGOT 16.0 U/L (12-37); Bilirubin, Total 0.5 mg/dL (0.1-1.0); Blood Urea Nitrogen 9.0 mg/dL (8-24); CO2, Blood 20.0 mmol/L (21-32); Calcium, Blood 9.1 mg/dL (8.5-10.1); Chloride, Blood 101.0 mmol/L (98-108); Creatinine, Blood 0.41 mg/dL (0.60-1.20); Globulin, Blood 5.5 g/dL (2.2-4.0); Glucose, Blood 222.0 mg/dL (70-99); Potassium, Blood 4.0 mmol/L (3.5-5.5); Sodium, Blood 133.0 mmol/L (136-145); Total Protein, Blood 7.4 g/dL (6.4-8.2)
[2025-02-04 11:20] LABS: Source, Urine Voided
[2025-02-04 11:28] LABS: Bilirubin, Urine Neg (Neg); Glucose Qualitative, Urine 4+ (Neg); Ketones, Urine 4+ (Neg); Leukocyte Esterase, Urine Neg (Neg); Protein, Urine 2+ (Neg); Specific Gravity, Urine 1.010 (1.003-1.022); Urobilinogen, Urine NORM (Normal)
[2025-02-04 11:34] LABS: Color, Urine Pale Yellow (P-Yellow)
[2025-02-04 11:35] LABS: Red Blood Cells, Urine 0-2 /hpf (0-2); White Blood Cells, Urine 0-2 /hpf (0-5)
[2025-02-04] MEDS ORDERED: Ondansetron HCl 2 MG / ML 2ML Vial IV ONE (11:50)
[2025-02-04] MEDS ORDERED: Ketorolac Tromethamine 30mg Vial IV ONE (11:50)
[2025-02-04] MEDS ORDERED: HYDROmorphone HCl/Pf 1MG SYR IV ONE (13:20)
[2025-02-04] MEDS ORDERED: Piperacillin/Tazobactam Sod 4.5 GM in NS 100 ML IV ONE (16:05)
[2025-02-04] MEDS ORDERED: LOSA25 PO (16:23)
[2025-02-04] MEDS ORDERED: FLU VACC TS2025-26(6MOS UP)/PF 45 MCG/0.5 ML SYRINGE IM SCH (16:55)
[2025-02-04 17:48] LABS: Anion Gap 17.0 mmol/L (3-11); Blood Urea Nitrogen 8.0 mg/dL (8-24); CO2, Blood 20.0 mmol/L (21-32); Calcium, Blood 8.6 mg/dL (8.5-10.1); Chloride, Blood 103.0 mmol/L (98-108); Creatinine, Blood 0.39 mg/dL (0.60-1.20); Glucose, Blood 209.0 mg/dL (70-99); Potassium, Blood 3.8 mmol/L (3.5-5.5); Sodium, Blood 136.0 mmol/L (136-145)
[2025-02-04] MEDS ORDERED: HYDROmorphone HCl/Pf 1MG SYR IV PRN (18:30)
[2025-02-04] MEDS ORDERED: Ketorolac Tromethamine 15mg Vial IV PRN (18:40)
[2025-02-04 19:00] VITALS: BP 171/96
[2025-02-04] MEDS ORDERED: Ondansetron HCl 2 MG / ML 2ML Vial IV PRN (19:00)
[2025-02-04] MEDS ORDERED: Insulin Glargine-Yfgn 100 Unit/mL 3 ML SYR SC SCH ×2 (19:00→21:00)
[2025-02-04] MEDS ORDERED: HydrALAZINE HCl 20 MG / ML 1ML Vial IV PRN ×2 (19:00→23:25)
[2025-02-04] MEDS ORDERED: Insulin Regular 100 UNIT/ML 10ML Vial SC SCH (21:00)
[2025-02-04] MEDS ORDERED: Lactobacil 2-S.Thermo-Bifido 1 1 Cap PO SCH (21:00)
[2025-02-04] MEDS ORDERED: NS 250 ML IV PRN (22:35)
[2025-02-04 22:38] LABS: Anion Gap 16.0 mmol/L (3-11); Blood Urea Nitrogen 9.0 mg/dL (8-24); CO2, Blood 18.0 mmol/L (21-32); Calcium, Blood 8.7 mg/dL (8.5-10.1); Chloride, Blood 103.0 mmol/L (98-108); Creatinine, Blood 0.36 mg/dL (0.60-1.20); Glucose, Blood 228.0 mg/dL (70-99); Potassium, Blood 3.9 mmol/L (3.5-5.5); Sodium, Blood 133.0 mmol/L (136-145)
[2025-02-04] MEDS ORDERED: D5W-LR 1,000 ML IV SCH (23:30)
[2025-02-04] MEDS ORDERED: Insulin Human Regular 100 UNIT in NS 100 ML IV SCH (23:45)
[2025-02-04 23:50] VITALS: BP 171/101
[2025-02-05] VITALS (39 sets, daily range): BP systolic 155–198; BP diastolic 76–113
[2025-02-05] MEDS ORDERED: Piperacillin/Tazobactam Sod 4.5 GM in NS 100 ML IV SCH
--- NOTE | 2025-02-05 00:03 | NUR ---
PATIENT UPDATE; TRANSFER CALL RECIEVED FROM DR. AGUILAR ABOUT WANTING TO TRANSFER THIS PT TO THE ICU R/T LAB VALUES. PATIENT NOTIFIED, CALLED REPORT TO ICU, AND PATIENT TRANSFERRED VIA WHEELCHAIR.
[2025-02-05] MEDS ORDERED: D5W-NS 1,000 ML IV SCH (00:25)
--- NOTE | 2025-02-05 01:22 | NUR ---
TRANSFERRED GOT REPORT FROM PATY AIRPLANE RIGGER @ 1150. PATIENT ARRIVED @ 1157 TO ICU 11
[2025-02-05 02:26] LABS: BASOPHILS ABSOLUTE AUTO 0.05 K/mm3 (0.00-0.23); BASOPHILS PERCENT AUTO 0 % (0-2); EOSINOPHILS ABSOLUTE AUTO 0.08 K/mm3 (0.00-0.68); EOSINOPHILS PERCENT AUTO 1 % (0-6); Hematocrit 38.9 % (37.0-53.0); Hemoglobin 13.0 g/dL (13.5-17.5); IMMATURE GRAN ABSOLUTE AUTO 0.49 K/mm3 (0.00-0.10); IMMATURE GRAN PERCENT AUTO 3 % (0-1); LYMPHOCYTES ABSOLUTE AUTO 1.26 K/mm3 (0.84-5.20); LYMPHOCYTES PERCENT AUTO 8 % (21-46); MONOCYTES ABSOLUTE AUTO 1.49 K/mm3 (0.16-1.47); MONOCYTES PERCENT AUTO 10 % (4-13); Mean Corpuscular HGB Conc 33.4 g/dL (31.5-36.5); Mean Corpuscular Volume 89 fL (80-100); NEUTROPHILS ABSOLUTE AUTO 11.95 K/mm3 (1.96-9.15); NEUTROPHILS PERCENT AUTO 78 % (41-73); NRBC ABSOLUTE 0.00 K/mm3 (0.00-0.02); NRBC Auto 0.0 /100 WBC (0.0-0.2); Platelet Count 349 K/mm3 (150-400); RDW Coefficient Variation 12.6 % (11.7-14.2); RDW Standard Deviation 41.1 fL (35.1-46.3)
[2025-02-05 02:58] LABS: Alanine Aminotransfer (ALT/SGP 26.0 U/L (12-78); Albumin, Blood 1.9 g/dL (3.4-5.0); Albumin/Globulin Ratio 0.4 (0.8-1.8); Anion Gap 14.0 mmol/L (3-11); Aspartate Aminotrans (AST/SGOT 16.0 U/L (12-37); Bilirubin, Total 0.5 mg/dL (0.1-1.0); Blood Urea Nitrogen 8.0 mg/dL (8-24); CO2, Blood 21.0 mmol/L (21-32); Calcium, Blood 8.2 mg/dL (8.5-10.1); Chloride, Blood 103.0 mmol/L (98-108); Creatinine, Blood 0.38 mg/dL (0.60-1.20); Globulin, Blood 4.8 g/dL (2.2-4.0); Glucose, Blood 233.0 mg/dL (70-99); Magnesium, Blood 1.8 mg/dL (1.6-2.4); Phosphorus, Blood 3.7 mg/dL (2.5-4.9); Potassium, Blood 3.6 mmol/L (3.5-5.5); Sodium, Blood 134.0 mmol/L (136-145); Total Protein, Blood 6.7 g/dL (6.4-8.2)
[2025-02-05] MEDS ORDERED: D5W-1/2NS KCl 20mEq 1,000 ML IV SCH (06:00)
[2025-02-05 06:09] LABS: Magnesium, Blood 1.7 mg/dL (1.6-2.4)
--- NOTE | 2025-02-05 06:12 | NUR ---
SHIFT SUMMARY PATIENT A&O X4. AFERIBLE THROUGH SHIFT. WALKS INDEPENDENTLY AND USES URINAL. PATIENT MOVES SELF IN BED. HR IN THE 90'S AND SBP 170-160'S MD AWARE. HAS POWERGLIDE IN LEFT UPPER ARM WITH INSULIN INFUSING @6 AND D5 1/2NS WITH 20MEQ OF POTASSIUM INFUSING @150MLS. HAS RIGHT FOREARM PERPHERAL IV SALINE LOCKED. PATIENT WILL LET NURSE KNOW WHEN IN PAIN AND USES CALL LIGHT TO MAKE NEEDS KNOWN. ON ROOMAIR. CALL LIGHT WITHIN REACH.
[2025-02-05 07:00] LABS: Anion Gap 10.0 mmol/L (3-11); Blood Urea Nitrogen 7.0 mg/dL (8-24); CO2, Blood 24.0 mmol/L (21-32); Calcium, Blood 8.2 mg/dL (8.5-10.1); Chloride, Blood 104.0 mmol/L (98-108); Creatinine, Blood 0.43 mg/dL (0.60-1.20); Glucose, Blood 248.0 mg/dL (70-99); Phosphorus, Blood 3.3 mg/dL (2.5-4.9); Potassium, Blood 3.3 mmol/L (3.5-5.5); Sodium, Blood 135.0 mmol/L (136-145)
[2025-02-05] MEDS ORDERED: Potassium Chl 20MEQ/Water100ML 100 ML IV STA (08:07)
[2025-02-05] MEDS ORDERED: Insulin Glargine-Yfgn 100 Unit/mL 3 ML SYR SC ONE (08:30)
[2025-02-05] MEDS ORDERED: Enoxaparin 40 MG/0.4 ML SYR SC SCH (09:00)
--- NOTE | 2025-02-05 09:48 | NUR ---
AM NOTE... ASSUMED CARE OF PT AT 0700, PT IS A&Ox4. HE IS IN SR IN THE 80'S-90'S BP IS HYPERTENSIVE WITH SBPs IN THE 150'S-180'S. NO SWELLING OR EDEMA NOTED ON THIS ASSESSMENT. PT IS ON RA WITH O2 SATS>95% L/S ARE CLEAR AND DIM T/O WITH SOME EXP WHEEZES HEARD ON THE LEFT SIDE, PT EDUCATED ON THE IMPORTANCE OF DEEP BREATHING AND AMBULATION TO PREVENT PNA. PT CURRENTLY DENIES ANY N/V OR SOB. PT'S ABD IS LARGE AND TENDER TO PALPATION MIDLINE TO THE RIGHT SIDE, LEFT SIDE IS NOT PAINFUL. BT ARE VERY HYPOACTIVE. PT'S INCISIONS/DRESSINGS ARE C/D/I. PT IS CURRENTLY ON AN INSULIN GTT ALONG WITH D5 1/2NS WITH KCL. INSULIN IS RUNNING AT 5U/HR, D5 1/2NS IS RUNNING AT 150MLS/HR. PLANS TO STOP THE DRIP APROX 1030. PT WAS STARTED ON A CL DIET, PLANS TO ADVANCE TO FULL LIQUID PER DR. IVERSON. PT UP IN THE RECLINER CHAIR FOR BREAKFAST.
[2025-02-05] MEDS ORDERED: Insulin Human Lispro 100 Units/ML 3ML Syringe SC SCH (11:30)
[2025-02-05] MEDS ORDERED: HydrALAZINE HCl 20 MG / ML 1ML Vial IV PRN (12:25)
[2025-02-05 13:45] LABS: Anion Gap 12.0 mmol/L (3-11); Blood Urea Nitrogen 6.0 mg/dL (8-24); CO2, Blood 24.0 mmol/L (21-32); Calcium, Blood 8.4 mg/dL (8.5-10.1); Chloride, Blood 103.0 mmol/L (98-108); Creatinine, Blood 0.45 mg/dL (0.60-1.20); Glucose, Blood 209.0 mg/dL (70-99); Magnesium, Blood 2.0 mg/dL (1.6-2.4); Phosphorus, Blood 3.2 mg/dL (2.5-4.9); Potassium, Blood 3.8 mmol/L (3.5-5.5); Sodium, Blood 135.0 mmol/L (136-145)
[2025-02-05] MEDS ORDERED: Polyethylene Glycol 3350 17 gm PO PRN (13:50)
[2025-02-05] MEDS ORDERED: Labetalol HCL 5 MG/ML 20MLVIAL IV PRN (14:25)
--- NOTE | 2025-02-05 17:36 | NUR ---
SHIFT SUMMARY.... NO ACUTE NEGATIVE CHANGES NOTED THIS SHIFT. PT'S SBPs WERE IN THE 180'S-190'S AFTER GIVING ALL ORDERED MEDICATIONS, PROVIDER WAS CALLED AND NEW ORDERS FOR NORVASC, INCREASED DOSE OF HYDRALAZINE AND ADDED LABATALOL CURRENTLY THE PT'S SBPs ARE IN THE 150'S-160'S. PT'S CBGs OFF OF THE INSULIN DRIP HAVE BEEN IN THE LOW 200'S. PT HAS DENIED N/V ALL SHIFT. HE HAS BEEN MEDICATED FOR PAIN 4 TIMES PER EMAR WITH GOOD RESULTS. PT HAS BEEN ABLE TO GET UP AND AMBULATE TO THE TOILET TO VOID AND ATTEMPT TO HAVE A BM. PT WAS GIVEN A DOSE OF MIRALAX D/T "FEELING CONSTIPATED." PT'S BT CONTINUE TO BE VERY HYPOACTIVE, ABD IS STILL SOFT BUT TENDER TO PALPATION ON THE MID/RIGHT SIDE. PT'S SUGRICAL SITES ARE ALL C/D/I.
--- NOTE | 2025-02-05 23:31 | NUR ---
TRANSFERRED CARE GAVE REPORT TO TYRESE SALOMON @ 0506. PATIENT SLEEPING WITH CALL LIGHT WITHIN REACH.
--- NOTE | 2025-02-05 23:32 | NUR ---
ASSUMED CARE OF PATIENT, REPORT RECEIVED FROM AIME WILKINS. PT ASLEEP AT TIME OF REPORT, CALL LIGHT WITHIN REACH.
[2025-02-06] VITALS (11 sets, daily range): BP systolic 149–189; BP diastolic 81–111
[2025-02-06] MEDS ORDERED: HYDROcodone 7.5-APAP 325 TAB PO PRN (02:25)
[2025-02-06 03:21] LABS: BASOPHILS ABSOLUTE AUTO 0.06 K/mm3 (0.00-0.23); BASOPHILS PERCENT AUTO 0 % (0-2); EOSINOPHILS ABSOLUTE AUTO 0.13 K/mm3 (0.00-0.68); EOSINOPHILS PERCENT AUTO 1 % (0-6); Hematocrit 38.0 % (37.0-53.0); Hemoglobin 12.7 g/dL (13.5-17.5); IMMATURE GRAN ABSOLUTE AUTO 0.47 K/mm3 (0.00-0.10); IMMATURE GRAN PERCENT AUTO 3 % (0-1); LYMPHOCYTES ABSOLUTE AUTO 1.34 K/mm3 (0.84-5.20); LYMPHOCYTES PERCENT AUTO 10 % (21-46); MONOCYTES ABSOLUTE AUTO 1.54 K/mm3 (0.16-1.47); MONOCYTES PERCENT AUTO 11 % (4-13); Mean Corpuscular HGB Conc 33.4 g/dL (31.5-36.5); Mean Corpuscular Volume 87 fL (80-100); NEUTROPHILS ABSOLUTE AUTO 10.17 K/mm3 (1.96-9.15); NEUTROPHILS PERCENT AUTO 74 % (41-73); NRBC ABSOLUTE 0.00 K/mm3 (0.00-0.02); NRBC Auto 0.0 /100 WBC (0.0-0.2); Platelet Count 318 K/mm3 (150-400); RDW Coefficient Variation 12.7 % (11.7-14.2); RDW Standard Deviation 40.4 fL (35.1-46.3)
[2025-02-06 03:46] LABS: Anion Gap 9.0 mmol/L (3-11); Blood Urea Nitrogen 8.0 mg/dL (8-24); CO2, Blood 26.0 mmol/L (21-32); Calcium, Blood 8.3 mg/dL (8.5-10.1); Chloride, Blood 104.0 mmol/L (98-108); Creatinine, Blood 0.42 mg/dL (0.60-1.20); Glucose, Blood 251.0 mg/dL (70-99); Potassium, Blood 4.0 mmol/L (3.5-5.5); Sodium, Blood 135.0 mmol/L (136-145)
[2025-02-06] MEDS ORDERED: Polyethylene Glycol 3350 17 gm PO ONE (04:35)
--- NOTE | 2025-02-06 05:01 | NUR ---
SHIFT SUMMARY PT REMAINS ALERT AND ORIENTED X 4. ABLE TO FOLLOW COMMANDS, MAKE PURPOSEFUL MOVEMENTS, AND MAKE NEEDS KNOWN. AFEBRILE. MEDICATED FOR PAIN PER EMAR c GOOD BENEFIT. AMBULATES TO BSC WITH MIN SBA FOR CORD MGMT. PT ALSO REQUESTED TO WALK THE ICU HALLWAY, DONE SO WITH SBA. MEDICATED c LABETALOL PRIOR TO ASSUMPTION OF CARE c GOOD BENEFIT. ON RA. 1 BM THIS SHIFT, ADDITIONAL DOSE OF MIRALAX GIVEN PER PT REQUEST, OKAY PER DR. PATRICK. INCISIONS TO ABD c NO OOZING, STERI-STRIPS IN PLACE. BANDAGE TO JAXON SITE CHANGED THIS SHIFT. PG TO MICHAELLE, PIV TO RFA SALINE LOCKED AT THIS TIME. WILL CONTINUE TO MONITOR AND REPORT TO ONCOMING RN.
[2025-02-06] MEDS ORDERED: Insulin Glargine-Yfgn 100 Unit/mL 3 ML SYR SC SCH (09:00)
--- NOTE | 2025-02-06 09:10 | NUR ---
ASSUMPTION OF CARE BEDSIDE REPORT RECEIVED FROM [facility] NURSE. PT A&OX4, INDEPENDENT IN ROOM. INITIALLY C/O ABDOMINAL DISCOMFORT/ CONSTIPATION BUT HAD A LARGE BM THIS AM. NOW STATES "I FEEL MUCH BETTER". TOLERATING FULL LIQUID DIET. SBP REMAINS ELEVATED, AM MEDICATIONS GIVEN.
[2025-02-06] MEDS ORDERED: Piperacillin/Tazobactam Sod 4.5 GM in NS 100 ML IV SCH (14:00)
--- NOTE | 2025-02-06 14:36 | NUR ---
SUMMARY PT REMAINS A&OX4, CALM AND COOPERATIVE. STATES HE FEELS MUCH BETTER AFTER MULTIPLE BM'S TODAY. NO N/V, TOLERATING PO INTAKE. CONTINUES TO HAVE DISCOMFORT IN HIS ABDOMEN, PAIN CONTROLLED WITH PRN TORADOL & HYDROCODONE.
--- NOTE | 2025-02-06 18:13 | NUR ---
ASSUMED CARE OF PT @1552 AXO4. ARRIVED BY WHEELCHAIR. HTN - BUT LESSENED TO <170SBP SO NO PRNS ADMINISTERED. PAINFUL - PAIN MEDS PER EMAR. LAP SITES X5 CDI. PREVIOUS JAXON DRAIN SITE BANDAID CHANGED OUT. PT SHOWERED UPON ARRIVAL. POWERGLIDE TO L ARM PATENT. IV ABX INFUSING. PT TOLERATING DINNER NOW. USING CALL LIGHT APPROPRIATELY.
[2025-02-07 03:37] VITALS: BP 169/96
[2025-02-07 04:50] LABS: BASOPHILS ABSOLUTE AUTO 0.06 K/mm3 (0.00-0.23); BASOPHILS PERCENT AUTO 1 % (0-2); EOSINOPHILS ABSOLUTE AUTO 0.11 K/mm3 (0.00-0.68); EOSINOPHILS PERCENT AUTO 1 % (0-6); Hematocrit 39.2 % (37.0-53.0); Hemoglobin 13.0 g/dL (13.5-17.5); IMMATURE GRAN ABSOLUTE AUTO 0.28 K/mm3 (0.00-0.10); IMMATURE GRAN PERCENT AUTO 2 % (0-1); LYMPHOCYTES ABSOLUTE AUTO 1.63 K/mm3 (0.84-5.20); LYMPHOCYTES PERCENT AUTO 13 % (21-46); MONOCYTES ABSOLUTE AUTO 1.39 K/mm3 (0.16-1.47); MONOCYTES PERCENT AUTO 11 % (4-13); Mean Corpuscular HGB Conc 33.2 g/dL (31.5-36.5); Mean Corpuscular Volume 88 fL (80-100); NEUTROPHILS ABSOLUTE AUTO 9.19 K/mm3 (1.96-9.15); NEUTROPHILS PERCENT AUTO 73 % (41-73); NRBC ABSOLUTE 0.00 K/mm3 (0.00-0.02); NRBC Auto 0.0 /100 WBC (0.0-0.2); Platelet Count 358 K/mm3 (150-400); RDW Coefficient Variation 12.5 % (11.7-14.2); RDW Standard Deviation 40.3 fL (35.1-46.3)
[2025-02-07 05:08] LABS: Anion Gap 11.0 mmol/L (3-11); Blood Urea Nitrogen 7.0 mg/dL (8-24); CO2, Blood 27.0 mmol/L (21-32); Calcium, Blood 8.3 mg/dL (8.5-10.1); Chloride, Blood 101.0 mmol/L (98-108); Creatinine, Blood 0.49 mg/dL (0.60-1.20); Glucose, Blood 223.0 mg/dL (70-99); Potassium, Blood 3.5 mmol/L (3.5-5.5); Sodium, Blood 135.0 mmol/L (136-145)
[2025-02-07 07:20] VITALS: BP 178/97
--- NOTE | 2025-02-07 07:27 | NUR ---
SUMMARY PT MED WITH DILAUDID X 1 IN ADDITION TO PO PAIN MEDS.PT REPORTS PAIN IS IMPROVING, NO OTHER ACUTE CHANGES NOTED.
--- NOTE | 2025-02-07 10:31 | NUR ---
PT TO CT.
--- NOTE | 2025-02-07 11:26 | NUR ---
DR ADRIAN IN TO SEE PT.
[2025-02-07] MEDS ORDERED: NS 250 ML IV PRN (12:00)
[2025-02-07 14:54] VITALS: BP 180/99
--- NOTE | 2025-02-07 15:46 | NUR ---
DR CLEMENS IN TO SEE PT THIS AFTERNOON WHEN ROUNDED ON PT, NOTIFIED DR CLEMENS THAT NOC RN THOUGHT DETECTED MURMUR.
[2025-02-07 17:23] VITALS: BP 176/97
--- NOTE | 2025-02-07 18:30 | NUR ---
SUMMARY NO ACUTE CHANGES T/O SHIFT. PT'S AFTERNOON BP ELEVATED AT F180/99. ADMINISTERED 10 MG IV HYDRALAZINE PER ORDERS. RECHECK OF BP TWO HOURS AFTER HYDRALAZINE SHOWED A SBP OF 176. NOTIFIED DR CLEMENS, NO NEW ORDERS. PT REPORTS PAIN IMPROVING; MEDICATED PER ORDERS W/PO PAIN MEDS. PT ADVANCED TO CONSISTENT CARB DIET AT LUNCH AND TOLERATED WELL. INDEPENDENT IN ROOM. CALL LIGHT IN REACH.
[2025-02-07 19:40] VITALS: BP 168/94
[2025-02-08 04:18] LABS: Hematocrit 36.5 % (37.0-53.0); Hemoglobin 12.2 g/dL (13.5-17.5); Mean Corpuscular HGB Conc 33.4 g/dL (31.5-36.5); Mean Corpuscular Volume 88 fL (80-100); NRBC ABSOLUTE 0.00 K/mm3 (0.00-0.02); NRBC Auto 0.0 /100 WBC (0.0-0.2); Platelet Count 301 K/mm3 (150-400); RDW Coefficient Variation 12.4 % (11.7-14.2); RDW Standard Deviation 39.8 fL (35.1-46.3)
[2025-02-08 04:36] LABS: Anion Gap 8.0 mmol/L (3-11); Blood Urea Nitrogen 8.0 mg/dL (8-24); CO2, Blood 28.0 mmol/L (21-32); Calcium, Blood 8.1 mg/dL (8.5-10.1); Chloride, Blood 101.0 mmol/L (98-108); Creatinine, Blood 0.51 mg/dL (0.60-1.20); Glucose, Blood 219.0 mg/dL (70-99); Potassium, Blood 3.6 mmol/L (3.5-5.5); Sodium, Blood 133.0 mmol/L (136-145)
--- NOTE | 2025-02-08 04:36 | NUR ---
SHIFT SUMMARY CORNELL WAS A/O X4 ON ASSESSMENT. PT PAIN WELL MANAGED. PREV LAP SITES C/D/I. CBG NOT REQUIRING COVERAGE TONIGHT. PT DENIES SOB, CHEST PAIN, NAUSEA. AMBULATING IND. NO ACUTE EVENTS TONIGHT. NO CHANGES TO PT CONDITION.
[2025-02-08 06:41] VITALS: BP 173/103
[2025-02-08] MEDS ORDERED: HYDROcodone 7.5-APAP 325 TAB PO PRN (07:25)
[2025-02-08 07:56] VITALS: BP 183/96
[2025-02-08] MEDS ORDERED: AMLO5 PO (11:26)
[2025-02-08] MEDS ORDERED: AMOCLA875 PO (11:26)
[2025-02-08] MEDS ORDERED: Norco 7.5-3251 EACH PO (11:27)
[2025-02-08] MEDS ORDERED: HYDRA25 PO (11:27)
[2025-02-08] MEDS ORDERED: MIRALAX11910 PO (11:28)
[2025-02-08] MEDS ORDERED: VISBIOME 112.51 EACH PO (11:33)
[2025-02-08] MEDS ORDERED: GLIP5 PO (11:34)
[2025-02-08] MEDS ORDERED: METF500 PO (11:34)
[2025-02-08 12:12] VITALS: BP 173/98
--- NOTE | 2025-02-08 12:32 | NUR ---
DISCHARGED PT LEFT UNIT BY AMBULATION, DECLINING WC, W/POSSESSIONS AND DC PAPERWORK, ACCOMPANIED BY RIDE.
== END 2025-02-08 12:32 | disposition home or self-care (01) | DRG 862 ==
LOC: ER 10:10 → ICUE 16:46 → SURS 16:46 → ICUE 23:58 → SURS 02-06 16:07
PROVIDERS: Emergency Medicine; Family Medicine; Internal Medicine; ADMIT Internal Medicine
DX: T81.43XA Infection following a procedure, organ and space surgical site, initial encounter (principal); E11.10 Type 2 diabetes mellitus with ketoacidosis without coma; K35.32 Acute appendicitis with perforation, localized peritonitis, and gangrene, without abscess; E87.1 Hypo-osmolality and hyponatremia; T81.44XA Sepsis following a procedure, initial encounter; I10 Essential (primary) hypertension; G89.29 Other chronic pain; M54.50 Low back pain, unspecified; G47.33 Obstructive sleep apnea (adult) (pediatric); I16.0 Hypertensive urgency; E11.42 Type 2 diabetes mellitus with diabetic polyneuropathy; Z90.89 Acquired absence of other organs; Z90.49 Acquired absence of other specified parts of digestive tract; Z79.4 Long term (current) use of insulin; Z79.899 Other long term (current) drug therapy; Y83.8 Other surgical procedures as the cause of abnormal reaction of the patient, or of later complication, without mention of misadventure at the time of the procedure
CPT/HCPCS: 36415; 74177; 80048; 80053; 81001; 82010; 82947; 83605; 83690; 83735; 84100; 85025; 85027; 96365-59; 96375; 99285-25; A9270; C1751; J0360; J1171; J1650; J1815; J1885; J2405; J2543; J3480; J7042; J7120; Q9967